=== PATIENT | female | born 1960 | race Caucasian/White ===

== ENCOUNTER 2024-09-02 16:55 | Emergency (ER) | payer MEDICARE ==
[~2024-09-02] VITALS: Ht 157.5 cm; Wt 54.4 kg
[2024-09-02] MEDS ORDERED: ZPAK PO (18:01)
[2024-09-02] MEDS ORDERED: TAM75CAP PO (18:01)
[2024-09-02 18:04] VITALS: BP 116/72
== END 2024-09-02 18:04 | disposition home or self-care (01) ==
LOC: ED 16:55
DX: J10.1 Influenza due to other identified influenza virus with other respiratory manifestations (principal); Z20.822 Contact with and (suspected) exposure to COVID-19